=== PATIENT | male | born 1985 | race Two or more races ===

== ENCOUNTER 2023-03-05 16:21 | Inpatient (IN) | payer OTHER ==
[~2023-03-05] VITALS: Ht 188 cm; Wt 92.0 kg
[2023-03-05 16:59] VITALS: PULSE 48; RESP 98; O2SAT 96
[2023-03-05 17:17] LABS: Basophils # (auto) 0.1 10 ^3/uL (0-0.2); Eosinophils # (auto) 0.1 10 ^3/uL (0-0.8); Eosinophils % (auto) 2.7 % (0.0-7.0); Hematocrit 44.3 % (41.0-53.0); Hemoglobin 15.1 g/dL (13.5-17.5); Lymphocytes # (auto) 1.6 10 ^3/uL (0.4-5.4); Lymphocytes % (auto) 32.1 % (10.0-50.0); Mean Corpuscular Hemoglobin 29.1 pg (28.0-32.0); Mean Corpuscular Volume 85.7 fL (80.0-100.0); Monocytes # (auto) 0.6 10 ^3/uL (0-1.3); Monocytes % (auto) 10.9 % (0.0-12.0); Neutrophils # (auto) 2.7 10 ^3/uL (1.6-8.6); Neutrophils % (auto) 53.3 % (37.0-80.0); Nucleated Red Blood Cells % 0.1 %; Red Blood Cells 5.17 10^6/uL (4.5-5.90); Red Cell Distribution Width 13.4 % (11.8-14.3); White Blood Cell 5.1 10^3/uL (4.4-10.8)
[2023-03-05 17:54] LABS: Albumin 3.8 g/dL (3.4-5.0); Calcium 8.8 mg/dL (8.5-10.1); Magnesium 2.3 mg/dL (1.6-2.6); Potassium 4.6 mmol/L (3.5-5.1)
[2023-03-05 17:57] LABS: Bilirubin, Total 0.7 mg/dL (0.2-1.0); Total Protein 7.3 g/dL (6.4-8.2)
[2023-03-05] MEDS ORDERED: ONDANSETRON HCL 4 MG/2 ML VIAL IV ONE (20:45)
[2023-03-05] MEDS ORDERED: ACETAMINOPHEN 325 MG TAB PO ONE (20:45)
[2023-03-05] MEDS ORDERED: ASPirin 81 mg TAB PO ONE (20:45)
[2023-03-05] MEDS ORDERED: MORPHINE SULFATE 4 MG/ML SYR/VIAL IV ONE (20:45)
[2023-03-05] MEDS ORDERED: ONDANSETRON HCL 4 MG/2 ML VIAL IV PRN (21:45)
[2023-03-05] MEDS ORDERED: NITROGLYCERIN 0.4 MG SL TAB SL PRN (21:45)
[2023-03-05] MEDS ORDERED: MORPHINE SULFATE INJ 2 MG/ml SYRG IV PRN (21:45)
[2023-03-06 07:35] VITALS: PULSE 56; RESP 21; O2SAT 98
[2023-03-06] MEDS ORDERED: ADENOSINE 55 MG in GIVE UN-DILUTED 0 ML IV ONE (07:45)
[2023-03-06] MEDS ORDERED: NITROGLYCERIN 0.4 MG SL TAB SL ONE (10:00)
[2023-03-06 13:00] VITALS: BP 118/118; PULSE 46; RESP 16; TEMP 97.8; O2SAT 100
[2023-03-06 17:00] VITALS: BP 115/76; PULSE 49; RESP 16; TEMP 97.6; O2SAT 98
[2023-03-06 20:00] VITALS: BP 120/63; PULSE 51; PULSE 78; RESP 16; TEMP 97.8; O2SAT 94
[2023-03-06 22:00] VITALS: BP 122/81; PULSE 50; RESP 16; TEMP 97.8; O2SAT 98
[2023-03-07] VITALS (7 sets, daily range): BP systolic 115–136; BP diastolic 60–89; PULSE 50–84; RESP 16–19; TEMP 97.7–98; O2SAT 96–99
[2023-03-08 05:00] VITALS: BP 118/75; PULSE 50; RESP 18; TEMP 97.6; O2SAT 96
[2023-03-08 07:30] VITALS: PULSE 48; TEMP 36.4
[2023-03-08 08:00] VITALS: O2SAT 96
[2023-03-08 09:00] VITALS: BP 111/74; PULSE 51; RESP 17; TEMP 97.6; O2SAT 96
[2023-03-08 09:47] VITALS: TEMP 36.4
== END 2023-03-08 10:30 | DRG 313 ==
LOC: EEVIPCON 16:21 → ER 16:21 → TELE 21:52 → TELE-WESTW 03-06 10:04
PROVIDERS: ADMIT Specialist; ATTEND Specialist
DX: R07.9 Chest pain, unspecified (principal); R00.1 Bradycardia, unspecified; R94.31 Abnormal electrocardiogram [ECG] [EKG]
CPT/HCPCS: 36415; 71046; 78452; 80053; 83735; 84443; 84484; 85025; 85379; 93005; 93017; 93306; G0378; J0153